=== PATIENT | male | born 1980 | race Caucasian/White ===

== ENCOUNTER 2017-05-15 17:23 | Outpatient (CLI) | payer BC ==
--- NOTE | 2017-05-16 10:22 | Diagnostic Imaging Report ---
Indication: Chest pain Technique: 2 views of the chest Comparison: None Findings: Lungs and pleural spaces are clear. The heart size is normal. The bones are unremarkable. No significant interim change. Impression: Negative
== END 2017-05-15 19:23 | disposition home or self-care (01) ==
LOC: RAD 17:23
DX: R07.89 Other chest pain (principal)
CPT/HCPCS: 71046